=== PATIENT | male | born 1990 | race Caucasian/White ===

== ENCOUNTER 2018-08-07 13:34 | Emergency (ER) | payer OTHER ==
[2018-08-07 14:51] LABS: BASO % 0.5 % (0.0-2.0); EOS # 0.1 K/uL (0.0-0.7); EOS % 1.6 % (0.0-4.0); HEMOGLOBIN 15.4 g/dL (12.0-18.0); LYMPH # 1.7 K/uL (1.0-4.3); LYMPH % 24.5 % (20.0-40.0); MEAN CELL VOLUME 84.8 fl (80.0-94.0); MEAN CORPUSCULAR HEMOGLOBIN 28.1 pg (27.0-31.0); MEAN CORPUSCULAR HGB CONC 33.2 g/dL (33.0-37.0); MEAN PLATELET VOLUME 8.5 fl (7.2-11.7); MONO # 1.1 K/uL (0.0-0.8); MONO % 15.8 % (0.0-10.0); NEUT # 4.1 K/uL (1.8-7.0); NEUT % 57.6 % (50.0-75.0); NRBC % 0.2 % (0.0-0.0); RBC 5.48 Mil/uL (4.40-5.90); RED CELL DISTRIBUTION WIDTH 13.2 % (11.5-14.5); WHITE BLOOD COUNT 7.1 K/uL (4.8-10.8)
--- NOTE | 2018-08-07 15:00 | ED PDOC ---
HPI: Chest Pain Additional Complaint(s): Patient seen and examined at bedside with attending. 27M chronic RIGHT sided chest pain but p/w acute onset sharp stabbing, non- radiating pain 10/10 while playing video games associated with transient diz ziness and "catching my breath", exacerbated by deep breaths, at present pain is 7/10. He promptly had EMS called. He denies any fevers, chills, cough, N/V, diaphoresis and is not currently dizzy. Of note, he describes non-specific RUQ pain that has been bothering him off and on for a week. He denies any recent travel. <Nyla Breen - Last Filed: 08/07/18 18:27> <Dali Paige - Last Filed: 08/08/18 12:19> Time Seen by Provider: 08/07/18 14:15 Chief Complaint (Nursing): Chest Pain Supervising Attending Note - Supervising Attending Note The Documented history was done by the: Physician [employer] Truck Driver The documented physical exam was done by the: Physician [employer] Truck Driver The documented procedures were done by the: Physician [employer] Flatbed Truck Driver (reviewed resident assessment and plan. Evaluated patient bedside. Agree with assessment and plan for discharge with outpatient follow up.) <Dali Paige - Last Filed: 08/08/18 12:19> Past Medical History Vital Signs: Last Vital Signs Temp 36.6 C 08/07/18 13:53 Pulse 84 08/07/18 13:53 Resp 18 08/07/18 13:53 BP 126/82 08/07/18 13:53 Pulse Ox 100 08/07/18 13:53 - Medical History PMH: Depression Denies: Diabetes, Hepatitis, HIV, HTN, Chronic Kidney Disease, Seizures, Sexually Transmitted Disease - Surgical History Surgical History: Tonsillectomy - Family History Family History: States: Unknown Family Hx <Nyla Breen - Last Filed: 08/07/18 18:27> Vital Signs: Last Vital Signs Temp 97.6 F 08/07/18 18:53 Pulse 78 08/07/18 18:53 Resp 19 08/07/18 18:53 BP 130/78 08/07/18 18:53 Pulse Ox 98 08/07/18 18:53 <Dali Paige - Last Filed: 08/08/18 12:19> - Home Medications Home Medications: Ambulatory Orders Medication Instructions Recorded Oxycodone HCl/Acetaminophen 1 tab PO Q6H PRN #15 tab 12/01/14 [Percocet 325 mg-5 mg] Oxycodone HCl/Acetaminophen 1 each PO Q6 PRN #15 tablet 11/10/15 [Percocet 5-325 mg Tablet] RX: Ibuprofen 600 mg PO Q6 PRN #15 tablet 11/10/15 Cephalexin [Keflex] 500 mg PO BID #14 cap 11/22/15 Ibuprofen [Motrin] 600 mg PO Q6 #20 tab 11/22/15 Lorazepam [Ativan] 0.5 mg PO HS #5 tab 05/13/17 RX: Albuterol HFA [Ventolin HFA 90 2 puff IH [id number] #1 inh 05/13/17 mcg/actuation (8 g)] - Allergies Allergies/Adverse Reactions: Allergies Allergy/AdvReac Type Severity Reaction Status Date / Time No Known Allergies Allergy Verified 11/22/15 03:42 Review of Systems ROS Statement: Except As Marked, All Systems Reviewed And Found Negative Cardiovascular: Positive for: Chest Pain (RIGHT, sharp), Light Headedness Gastrointestinal: Positive for: Abdominal Pain (non-specific RUQ as per HPI) <Nyla Breen - Last Filed: 08/07/18 18:27> - Laboratory Results Result Diagrams: 08/07/18 14:36 08/07/18 14:36 - ECG O2 Sat by Pulse Oximetry: 100 <Nyla Breen - Last Filed: 08/07/18 18:27> - Laboratory Results Result Diagrams: 08/07/18 14:36 08/07/18 14:36 <Dali Paige - Last Filed: 08/08/18 12:19> Medical Decision Making Medical Decision Making: Costochondritis vs. pleuritic vs. pneumothorax vs. pneumonia - CBC, CMP, Troponin, Lipase - EKG (NSR, no ST-T abnml, compared to EKG 05/2017) - CXR - Troponin 1505 Troponin is negative, CBC WNL CXR no acute findings CMP ALP elevated - Ultrasound abdomen(RUQ) 1805 Abd GB ultrasound negative for evidence of stones/inflammation <Nyla Breen - Last Filed: 08/07/18 18:27> Disposition - Patient ED Disposition Is Patient to be Admitted: No Counseled Patient/Family Regarding: Diagnosis - Disposition Disposition: Routine/Home Disposition Time: 18:06 <Nyla Breen - Last Filed: 08/07/18 18:27> <Dali Paige - Last Filed: 08/08/18 12:19> - Clinical Impression Clinical Impression: Chest wall pain, Costochondritis - Disposition Referrals: [facility] [Outside] Condition: IMPROVED Additional Instructions: Follow up with primary care doctor Return to the ER if development of fevers, chills Take over the counter Tylenol or Ibuprofen to control chest wall pain that is likely musculoskeletal in nature Instructions: [place] Diet, Costochondritis (DC) Forms: [employer] ([place])
[2018-08-07 15:02] LABS: ALB/GLOB RATIO 1.3 (1.0-2.1); ALBUMIN 4.5 g/dL (3.5-5.0); ALT/SGPT 57 U/L (21-72); AST/SGOT 49 U/L (17-59); BLOOD UREA NITROGEN 12 mg/dl (9-20); CALCIUM 9.4 mg/dL (8.4-10.2); GFR NON-AFRICAN AMERICAN 57; LIPASE 85 U/L (23-300)
--- NOTE | 2018-08-07 15:07 | RAD ---
Date of service: 08/07/2018 HISTORY: RIGHT pleuritic chest pain COMPARISON: 05/13/2017 TECHNIQUE: Chest PA and lateral FINDINGS: LUNGS: No active pulmonary disease. PLEURA: No significant pleural effusion identified. No pneumothorax apparent. CARDIOVASCULAR: No aortic atherosclerotic calcification present. Normal cardiac size. No pulmonary vascular congestion. OSSEOUS STRUCTURES: No significant abnormalities. VISUALIZED UPPER ABDOMEN: Normal. OTHER FINDINGS: None. IMPRESSION: No active disease. No significant interval change compared to the prior examination(s).
--- NOTE | 2018-08-07 17:44 | US ---
Date of service: 08/07/2018 HISTORY: RUQ Pain COMPARISON: None available. TECHNIQUE: Sonographic evaluation of the right upper quadrant of the abdomen. FINDINGS: LIVER: Measures 15.3 cm in length and appears unremarkable. No focal hepatic mass identified. The main portal vein appears patent with normal directional flow. No intrahepatic bile duct dilatation. GALLBLADDER: No gallstones. No gallbladder wall thickening or pericholecystic edema. Negative sonographic Drew's sign as assessed by the iron worker apprentice. COMMON BILE DUCT: Measures 3 mm. PANCREAS: Not well-visualized. RIGHT KIDNEY: Measures approximately 10.6 x 5.9 x 4.8 cm. No obstructing calculus or hydronephrosis identified. AORTA: Limited visualization appears grossly unremarkable. IVC: Limited visualization appears grossly unremarkable. OTHER FINDINGS: None . IMPRESSION: No acute findings identified.
[2018-08-07 18:54] VITALS: BP 130/78; PULSE 78; RESP 19; TEMP 97.6; O2SAT 98
== END 2018-08-07 18:54 | disposition home or self-care (01) ==
LOC: H.ER 13:34
DX: R07.89 Other chest pain (principal); M94.0 Chondrocostal junction syndrome [Tietze]
CPT/HCPCS: 71046; 76705; 80053; 83690; 83735; 84484; 85025; 96374; 99282; J1885

== ENCOUNTER 2018-08-10 08:40 | Emergency (ER) | payer OTHER ==
[2018-08-10 08:53] VITALS: TEMP 98.2; O2SAT 99
[2018-08-10 08:54] VITALS: BMI 28.8
[2018-08-10] MEDS ORDERED: Sodium Chloride 0.9% 1,000 ML IV STA (09:17)
--- NOTE | 2018-08-10 09:20 | ED PDOC ---
HPI: Chest Pain Time Seen by Provider: 08/10/18 09:00 Chief Complaint (Provider): chest pain History Per: Patient History/Exam Limitations: no limitations Onset/Duration Of Symptoms: Days (today) Additional Complaint(s): Pt. seen on 08/07/18 for same and got chest x-ray and US abd with no findings. Here as the same pain started randomly today and he started hyperventilating. It is getting better on its own now. No fever, cough, abd pain, nausea, vomit, numbness, tingles, weakness. Not suicidal or homicidal. No drugs or etoh. Pt. states symptoms ongoing off and on randomly for 2 years. No injury. No calf pain, hormone use, or long distance travel. Past Medical History Reviewed: Nursing Documentation, Vital Signs Vital Signs: Last Vital Signs Temp 98.2 F 08/10/18 09:04 Pulse 67 08/10/18 09:04 Resp 20 08/10/18 09:04 BP 143/84 08/10/18 09:04 Pulse Ox 99 08/10/18 09:04 - Medical History PMH: Depression Denies: Diabetes, Hepatitis, HIV, HTN, Chronic Kidney Disease, Seizures, Sexually Transmitted Disease - Surgical History Surgical History: Tonsillectomy - Family History Family History: States: Unknown Family Hx - Living Arrangements Living Arrangements: With Family - Social History Alcohol: None Drugs: Denies - Home Medications Home Medications: Ambulatory Orders Medication Instructions Recorded Oxycodone HCl/Acetaminophen 1 tab PO Q6H PRN #15 tab 12/01/14 [Percocet 325 mg-5 mg] Ibuprofen 600 mg PO Q6 PRN #15 tablet 11/10/15 Oxycodone HCl/Acetaminophen 1 each PO Q6 PRN #15 tablet 11/10/15 [Percocet 5-325 mg Tablet] Cephalexin [Keflex] 500 mg PO BID #14 cap 11/22/15 Ibuprofen [Motrin] 600 mg PO Q6 #20 tab 11/22/15 Albuterol HFA [Ventolin HFA 90 2 puff IH [id number] #1 inh 05/13/17 mcg/actuation (8 g)] Lorazepam [Ativan] 0.5 mg PO HS #5 tab 05/13/17 Famotidine [Pepcid] 20 mg PO DAILY PRN #6 tab 08/10/18 Ibuprofen [Motrin] 600 mg PO TID 7 Days tab 08/10/18 - Allergies Allergies/Adverse Reactions: Allergies Allergy/AdvReac Type Severity Reaction Status Date / Time No Known Allergies Allergy Verified 11/22/15 03:42 Review of Systems ROS Statement: Except As Marked, All Systems Reviewed And Found Negative Cardiovascular: Positive for: Chest Pain Physical Exam - Reviewed Nursing Documentation Reviewed: Yes Vital Signs Reviewed: Yes - Physical Exam Appears: Positive for: Non-toxic, No Acute Distress Head Exam: Positive for: ATRAUMATIC, NORMAL INSPECTION, NORMOCEPHALIC Skin: Positive for: Normal Color, Warm, DRY Eye Exam: Positive for: EOMI, Normal appearance, PERRL ENT: Positive for: Normal ENT Inspection Neck: Positive for: Normal, Painless ROM Cardiovascular/Chest: Positive for: Regular Rate, Rhythm. Negative for: Chest Non Tender (sternal), Edema Respiratory: Positive for: Normal Breath Sounds. Negative for: Accessory Muscle Use Gastrointestinal/Abdominal: Positive for: Normal Exam, Soft. Negative for: Tenderness Back: Positive for: Normal Inspection. Negative for: L CVA Tenderness, R CVA Tenderness Extremity: Positive for: Normal ROM. Negative for: Tenderness, Pedal Edema Neurologic/Psych: Positive for: Alert, nutter up II-XII, Oriented. Negative for: Motor/Sensory Deficits - Laboratory Results Result Diagrams: 08/10/18 09:36 08/10/18 09:36 Interpretation Of Abn Labs: no acute - ECG ECG: Positive for: Interpreted By Me, Viewed By Me ECG Rhythm: Positive for: Normal QRS, Normal ST Segment, Sinus Rhythm O2 Sat by Pulse Oximetry: 99 Pulse Ox Interpretation: Normal - Progress ED Course And Treament: 1053: Stable. AAOx3. Pain free. Tolerated PO. Fu with pcp. Disposition - Clinical Impression Clinical Impression: Chest pain - Patient ED Disposition Is Patient to be Admitted: No Counseled Patient/Family Regarding: Studies Performed, Diagnosis, Need For Foll owup, Rx Given - Disposition Referrals: [facility] [Outside] - 08/12/18 Disposition: Routine/Home Disposition Time: 10:30 Condition: STABLE Additional Instructions: Return if not better in 3 days. Prescriptions: Famotidine [Pepcid] 20 mg PO DAILY PRN #6 tab PRN Reason: Pain Ibuprofen [Motrin] 600 mg PO TID 7 Days tab Instructions: Chest Pain Forms: [facility] ED School/Work Excuse
[2018-08-10 09:40] VITALS: PULSE 69; RESP 21
[2018-08-10 09:45] LABS: BASO # 0.1 K/uL (0.0-0.2); BASO % 0.7 % (0.0-2.0); EOS # 0.2 K/uL (0.0-0.7); EOS % 2.4 % (0.0-4.0); LYMPH # 2.6 K/uL (1.0-4.3); LYMPH % 33.8 % (20.0-40.0); MEAN CELL VOLUME 84.2 fl (80.0-94.0); MEAN CORPUSCULAR HEMOGLOBIN 28.2 pg (27.0-31.0); MEAN CORPUSCULAR HGB CONC 33.5 g/dL (33.0-37.0); MEAN PLATELET VOLUME 8.7 fl (7.2-11.7); MONO # 0.7 K/uL (0.0-0.8); MONO % 9.1 % (0.0-10.0); NEUT # 4.1 K/uL (1.8-7.0); NRBC % 0.1 % (0.0-0.0); RBC 5.32 Mil/uL (4.40-5.90); RED CELL DISTRIBUTION WIDTH 13.2 % (11.5-14.5); WHITE BLOOD COUNT 7.6 K/uL (4.8-10.8)
[2018-08-10 10:07] LABS: ALB/GLOB RATIO 1.2 (1.0-2.1); ALT/SGPT 60 U/L (21-72); AST/SGOT 47 U/L (17-59); BLOOD UREA NITROGEN 12 mg/dl (9-20); CALCIUM 9.3 mg/dL (8.4-10.2); GFR NON-AFRICAN AMERICAN > 60
[2018-08-10 10:29] VITALS: BP 120/79
[2018-08-10 10:43] LABS: BARBITURATES, UR NEGATIVE (NEGATIVE); BENZODIAZEPINES, UR NEGATIVE (NEGATIVE); OPIATES, UR NEGATIVE (NEGATIVE); PHENCYCLIDINE, UR NEGATIVE (NEGATIVE)
--- NOTE | 2018-08-10 18:27 | CARD ---
APPROVED REPORT Date of service: 08/10/2018 EKG Measurement Heart [id number] <Conclusion> Sinus bradycardia Otherwise normal ECG
== END 2018-08-10 11:15 | disposition home or self-care (01) ==
LOC: H.ER 08:40
DX: R07.9 Chest pain, unspecified (principal); Z86.59 Personal history of other mental and behavioral disorders
CPT/HCPCS: 80053; 80320; 80324; 80345; 80346; 80349; 80353; 80358; 80361; 83992; 84484; 85025; 93005; 96374; 96375; 99285; J1885; J7030